=== PATIENT | male | born 1985 | race Caucasian/White ===

== ENCOUNTER 2024-12-29 23:29 | Emergency (ER) | payer MEDICAID ==
[~2024-12-29] VITALS: Ht 180.3 cm; Wt 82.0 kg
[2024-12-29 23:45] VITALS: BP 143/84; PULSE 84; RESP 18; TEMP 36.7; O2SAT 94
[2024-12-30 00:13] LABS: BASOPHILS % 0.9 % (0.0-2.0); EOSINOPHILS % 0.3 % (0.0-5.0); HEMATOCRIT. 31.9 % (42.0-52.0); HEMOGLOBIN. 9.9 g/dL (14.0-18.0); LYMPHOCYTES % 11.5 % (20.0-50.0); MEAN CORPUSCULAR HEMOGLOBIN 22.8 pg (28.0-32.0); MEAN CORPUSCULAR HGB CONC 30.9 g/dL (31.0-37.0); MEAN CORPUSCULAR VOLUME 73.8 fL (80.0-94.0); MEAN PLATELET VOLUME 8.2 fl (7.4-10.4); MONOCYTES % 4.5 % (2.0-8.0); NEUTROPHILS % 82.8 % (40.0-76.0); PLATELET 539 x1000/uL (130-400); RED BLOOD CELL COUNT 4.33 mill/uL (4.7-6.1); RED CELL DISTRIBUTION WIDTH 22.2 % (11.6-14.6); WHITE BLOOD COUNT 8.1 x1000/uL (4.5-11.0)
[2024-12-30 00:18] LABS: DIFFERENTIAL COMMENT 1
[2024-12-30 00:20] LABS: ADD RBC MORPHOLOGY YES
[2024-12-30 00:22] LABS: CARBON DIOXIDE 30 mEq/L (21-32); CHLORIDE 103 mEq/L (98-107); POTASSIUM 3.7 mEq/L (3.5-5.1); SODIUM 140 mEq/L (136-145)
[2024-12-30 00:23] LABS: CALCIUM 9.1 mg/dL (8.7-10.4)
[2024-12-30 00:27] LABS: CREATININE 0.9 mg/dL (0.6-1.3)
[2024-12-30 00:28] LABS: ETHANOL BLOOD < 10 mg/dL (<10); GLUCOSE 135 mg/dL (70-105); UREA NITROGEN BLOOD 17 mg/dL (9-23)
[2024-12-30 00:29] LABS: ALANINE AMINOTRANSFERASE 28 IU/L (10-49); ALBUMIN 4.2 g/dL (3.2-4.8); ASPARTATE AMINOTRANSFERASE 26 IU/L (<34)
[2024-12-30 00:30] LABS: BILIRUBIN DIRECT 0.1 mg/dL (<=3.0); BILIRUBIN TOTAL 0.4 mg/dL (0.1-1.0)
[2024-12-30 01:09] LABS: PROTHROMBIN TIME 10.5 sec (9.6-11.0)
[2024-12-30 05:16] LABS: PLATELET ESTIMATE INCREASED
[2024-12-30 05:17] LABS: ANISOCYTOSIS 1+
== END 2024-12-30 02:28 | disposition left against medical advice (07) ==
LOC: ER 23:29
DX: R10.84 Generalized abdominal pain (principal)
CPT/HCPCS: 36415; 80048; 80076; 80320; 85025; 99283; G0480